=== PATIENT | male | born 1995 | race Caucasian/White ===

== ENCOUNTER 2020-07-14 22:48 | Inpatient (IN) | payer BC, OTHER ==
[~2020-07-14] VITALS: Ht 180.3 cm; Wt 60.6 kg
[2020-07-15 00:20] LABS: HEMOGLOBIN 15.2 g/dl (13.5-17.5); MEAN CORPUSCULAR HEMOGLOBIN 29.4 pg (27.0-33.0); PLATELET COUNT, AUTOMATED 231 10^3/uL (150-450); RED BLOOD COUNT 5.17 10^6/uL (4.30-6.10); WHITE BLOOD COUNT 10.1 10^3/uL (4.0-10.0)
[2020-07-15 00:30] LABS: ACETAMINOPHEN LEVEL < 2.0 UG/ML (10.0-30.0); ALBUMIN 4.5 GM/DL (3.2-5.2); ALT/SGPT 23 U/L (12-78); AMPHETAMINES LEVEL URINE NEGATIVE (NEGATIVE); BARBITURATES URINE NEGATIVE (NEGATIVE); BENZODIAZEPINES URINE NEGATIVE (NEGATIVE); BILIRUBIN,DIRECT 0.2 MG/DL (0.0-0.2); BILIRUBIN,TOTAL 0.5 MG/DL (0.2-1.0); BLOOD UREA NITROGEN 12 MG/DL (7-18); CALCIUM LEVEL 9.8 MG/DL (8.5-10.1); CANNABINOIDS URINE POSITIVE (NEGATIVE); CARBON DIOXIDE LEVEL 27 MEQ/L (21-32); CHLORIDE LEVEL 107 MEQ/L (98-107); COCAINE METABOLITE URINE NEGATIVE (NEGATIVE); CREATININE FOR GFR 1.29 MG/DL (0.70-1.30); ETHYL ALCOHOL (ETHANOL) < 0.003 % (0.000-0.010); GLOMERULAR FILTRATION RATE > 60.0 (>60); GLUCOSE, FASTING 114 MG/DL (70-100); METHADONE URINE NEGATIVE (NEGATIVE); OPIATES URINE NEGATIVE (NEGATIVE); PHENCYCLIDINE URINE NEGATIVE (NEGATIVE); POTASSIUM SERUM 4.3 MEQ/L (3.5-5.1); SALICYLATE LEVEL < 1.7 MG/DL (5.0-30.0); SODIUM LEVEL 141 MEQ/L (136-145); TOTAL PROTEIN 7.6 GM/DL (6.4-8.2)
[2020-07-15 03:00] LABS: RSV AMPLIFICATION NEGATIVE (NEGATIVE)
[2020-07-15] MEDS ORDERED: MOM 30ML SUSPENSION UDC PO PRN (03:30)
[2020-07-15] MEDS ORDERED: ACETAMINOPHEN TAB 650MG DOSE (2X325MG) PO PRN (03:30)
[2020-07-15] MEDS ORDERED: MAALOX 30 ML SUSP *UDC PO PRN (03:30)
[2020-07-15] MEDS ORDERED: traZODone 50 MG TAB PO PRN (03:30)
[2020-07-15 04:30] VITALS: BP 134/81
[2020-07-15] MEDS ORDERED: OLANZapine ORAL DISINTEGRATING TAB 5MG PO PRN (05:00)
[2020-07-15] MEDS: NICOTINE 21MG/24HR 1 EA TRANSDERMAL TD SCH (09:00)
[2020-07-15] MEDS: SERTRALINE HCL 25 MG TABLET PO SCH (09:00)
--- NOTE | 2020-07-15 13:56 | HPEPDOC ---
General Date of Admission Jul 14, 2020 at 22:49 Date of Service: Jul 15, 2020 Chief Complaint The patient is a 24-year-old male admitted with a reason for visit of Unspecified Mood D/O. History of Present Illness 24 year old male admitted for depression with suicidal thoughts and ideas to [facility]. He is being medically examined today. He complains of depressed mood, low enery and poor sleep. Home Medications No Active Prescriptions or Reported Meds Allergies Coded Allergies: No Known Allergies (Unverified , 07/14/20) Past Medical History Medical History Depression with 1 suicide attempt in 2017 by OD never reported. 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 Family History Significant Family History: Diabetes (maternal grandfather) Social History * Smoker: Denies Alcohol: Denies Drugs: denies, marijuana A-FIB/CHADSVASC A-FIB History Current/History of A-Fib/PAF?: No Review of Systems Constitutional: Denies: Chills, Fever, Night Sweats Eyes: Denies: Pain, Vision change ENT: Denies: Head Aches, Ear Pain, Dysphagia Skin: Denies: Rash, Lesions, Breakdown Pulmonary: Denies: Dyspnea, Cough Cardiovascular: Denies: Chest Pain, Palpitations, Orthopnea, Paroxysmal Noc. Dyspnea, Lt Headedness Gastrointestinal: Denies: Nausea, Vomiting, Abdominal Pain, Diarrhea Genitourinary: Denies: Dysuria, Frequency, Incontinence, Retention Hematologic: Denies: Bruising, Bleeding Excessively Musculoskeletal: Denies: Neck Pain, Back Pain, Joint Pain, Muscle Pain, Spasms Neurological: Denies: Weakness, Numbness, Change in speech, Confusion Psych: Reports: Mood Normal; Denies: Depression, Memory Issues Physical Examination General Exam: Positive: Alert, No Acute Distress Eye Exam: Positive: PERRLA, Conjunctiva & lids normal, EOMI; Negative: Sclera icteric ENT Exam: Positive: Atraumatic, Mucous membr. moist/pink, Pharynx Normal Neck Exam: Positive: Supple; Negative: JVD, thyromegaly Chest Exam: Positive: Clear to auscultation, Normal air movement Heart Exam: Positive: Rate Normal, Regular Rhythm, Normal S1, Normal S2; Negative: Murmurs, Rubs Telemetry: Positive: No significant arrhythmia Abdomen Exam: Positive: Normal bowel sounds, Soft; Negative: Tenderness, Hepatospenomegaly Extremity Exam: Positive: Normal pulses; Negative: Clubbing, Cyanosis, Edema Skin Exam: Positive: Nl turgor and temperature; Negative: Breakdown, Lesion Neuro Exam: Positive: Normal Gait, Normal Speech, Strength at 5/5 X4 ext Psych Exam: Positive: Memory Intact, Oriented x 3 Vital Signs Vital Signs Date Time Temp Pulse Resp B/P (MAP) Pulse Ox O2 Delivery O2 Flow Rate FiO2 07/15/20 04:30 98.3 83 16 134/81 (98) 99 Room Air Laboratory Data Labs 24H Laboratory Tests 2 07/14/20 23:42: Nucleated Red Blood Cells % (auto) 0.0, Anion Gap 7L, Glomerular Filtration Rate > 60.0, Calcium Level 9.8, Total Bilirubin 0.5, Direct Bilirubin 0.2, Aspartate Amino Transf (AST/SGOT) 21, Alanine Aminotransferase (ALT/SGPT) 23, Alkaline Phosphatase 63, Total Protein 7.6, Albumin 4.5, Albumin/Globulin Ratio 1.5, Thyroid Stimulating Hormone (TSH) 1.480, Salicylates Level < 1.7L, Urine Opiates Screen NEGATIVE, Urine Methadone Screen NEGATIVE, Acetaminophen Level < 2.0L, Urine Barbiturates Screen NEGATIVE, Urine Phencyclidine Screen NEGATIVE, Urine Amphetamines Screen NEGATIVE, Urine Benzodiazepines Screen NEGATIVE, Urine Cocaine Metabolite Screen NEGATIVE, Urine Cannabinoids Screen POSITIVEH, Ethyl Alcohol Level < 0.003 07/15/20 02:14: Coronavirus (COVID-19)(PCR) NEGATIVE, Influenza Type A (RT-PCR) NEGATIVE, Influenza Type B (RT-PCR) NEGATIVE, Respiratory Syncytial Virus (PCR) NEGATIVE CBC/BMP Laboratory Tests 07/14/20 23:42 Assessment/Plan 24 year old male admitted for depression with suicidal thoughts and ideas to [facility]. He is being medically examined today. Depression As per psychiatry No active medical issues at this time. Plan / VTE VTE Prophylaxis Ordered?: No (freely ambulatory ) ANDRA ALEXANDER MD Jul 15, 2020 13:38
[2020-07-15 17:55] VITALS: BP 136/66
--- NOTE | 2020-07-15 20:15 | MHHPEPDOC ---
General Date Of Admission: Jul 14, 2020 Legal Status: 9.39 Chief Complaint "I don't know who called the advanced quality engineer on me" History of Present Illness HISTORY OF THE PRESENT ILLNESS: Patient is a 24 -year-old , male, who reports depression and suicidal thoughts to shoot himself with a gun. He states that he doesn't know who called the police, but did not know who he was going to be brought to the ED. Patient reports that he has been depressed as he is going through a pending divorce, has chronic back and right leg pain from injuries when he was in the [employer]. And reports that he has ongoing financial stressors trying to pay for his family's living expenses while only allowing himself a min imal allowance. He wrote his sister a letter, he states in today's interview that it was not a suicide note, but according to the ED report, he summarized the letter that had not reached her and she called the Police. He states that this letter was about how he was feeling. He reports being physically and mentally drained. Patient has a long history of depression dating to his childhood due to his parents addiction issues. His mother planned her suicide and he report that his Grandmother was aware of his mother's plan. 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 He reports being very upset that he could not pickling grader his young baby at the time due to not being able to lift. He reports Physical Therapy, Pain Medications, Colon Cancer scare, Abdominal Repair annd subsequently was medically discharged from the [employer]. Reports that he became addicted to the pain medications and overdosed in 2017. He did not want to be discharged from the [employer]. Reports his current stressors are: Pain from his injuries Pending divorce Poor communication with his , she will not allow him to speak to his children at times. 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 Suicide Attempts: Overdose on pain medications 2017 Psychiatric Follow-up: None Psychiatric medications: None, does not want medications at this writing Past Medical History Medical Problems Chronic Back and Leg Pain Head Injury: No Seizures: No Hospitalizations: Yes Surgeries: Yes Family Medical/Psychiatric HX Psychiatric Disorders: Yes Addiction: Yes (mother - anything, "she sold everything we owned" Grandmother gave her the gun to shoot herself, Dad - history of Crack Use - poor relationsh ip) Suicide Attemps/Completions: Yes Addiction History nicotine (vape), other (Marijuana) Social History Childhood: Born in [place], lived with his mother. He had no siblings. States that his father kicked his mother when she was and she lost a baby due to that injury. Abuse/Trauma: Reports a long history of childhood trauma of neglect, parents with substance use disorder, mother committed suicide and left a hateful video to him, Grandmother had utilities turned off while he was living there, he had to have an electric cord borrowed from the neighbors to have air con ditioning/light. 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 Stepfather committed suicide. Current Living Situation: Lives with his , who is currently pursing a divorce Education: High School Grad, [employer], has Master's degree Employment: Works on [employer], his job takes him away from home 6 weeks at a time Social Support: Best friend Army friend Legal: none Marital: x 6 years, pending divorce Mental Status Examination General Appearance: well groomed, appears stated age, hospital scubs/clothing Build: thin Demeanor: withdrawn, guarded, other (sad, tearful) Eye Contact: avoidant Activity: slowed Behavior: cooperative, withdrawn Speech: clear, low in volume Mood: depressed, anxious Affect: constricted Thought Process: logical/linear Thought Content (Delusions): none reported Thought Content (Other): none reported Thought Content (Aggressive): none reported Perception (Hallucinations): none reported Perception (Other): none reported Cognition (Impairment of): none reported Cognition(Intelligence Est.): average Oriented: Awake, Alert, Oriented times three Insight: good Judgment: Good Psychosis: Denies (Major Depressive Disorder, Single Episode, Moderate) Diagnoses Major Depressive Disorder, Single Episode, Moderate Tobacco Use Disorder Cannabis Use Disorder Chronic Pain A-FIB/CHADSVASC A-FIB History Current/History of A-Fib/PAF?: No Current PO Anticoag Therapy: No Assessment Patient is a 24 year old , Employed, Domiciled Male reporting depression with suicidal ideation. He was brought to the ED by Police after he reported to his sister what he had written in a letter to her. He had also called his children, to tell them he loved them. He admits that he has been having suicidal ideation to shoot himself with a gun. He is currently having marital problems, he says his is him. He states she overspends their money, but he needs to continue working this job that requires him to do work that he says are physically demanding, increasing him pain. He has a chronic back and leg pain from an injury when he was in the . 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 Reports his only support is his friend from the [employer]. He also reports that he recently lost one of his Army buddies on Tuesday and lost 5 within the last year. Patient meets the criteria for Major Depressive Disorder but is not seeking help with medication management, states that he does not want pills because he was addicted prior and had an overdose to pain medications.Throughout his interview patient appeared severely depressed and was extremely tearful. Educated patient on SSRIs and anxiety medications. He continued to decline offer of medications. We will observe patient and discharge when he is stable. Initial Treatment Plan 1. Patient was admitted on a [9.39] status. 2. Complete history was obtained. 3. With patients permission, family will be contacted and database will be expanded. 4. Patients medication regimen will be reviewed and changed accordingly. 5. Patient will be provided with protected environment. 6. Patient will be treated with individual, group, and milieu therapies. 7. Patient will receive supportive psych-education. 8. Discharge planning will commence immediately. 9. Outpatient follow-up treatment will be strongly recommended. 10. The initial treatment plan will focus initially on: * Depression. * Risk for suicide. ESTIMATED LENGTH OF STAY: 3-5 DAYS. TIME SPENT COUNSELING AND COORDINATING INITIAL CARE: 60 minutes. Vital Signs Vital Signs Date Time Temp Pulse Resp B/P (MAP) Pulse Ox O2 Delivery O2 Flow Rate FiO2 07/15/20 04:30 98.3 83 16 134/81 (98) 99 Room Air Laboratory Data 24H Labs Laboratory Tests 2 07/14/20 23:42: Nucleated Red Blood Cells % (auto) 0.0, Anion Gap 7L, Glomerular Filtration Rate > 60.0, Calcium Level 9.8, Total Bilirubin 0.5, Direct Bilirubin 0.2, Aspartate Amino Transf (AST/SGOT) 21, Alanine Aminotransferase (ALT/SGPT) 23, Alkaline Phosphatase 63, Total Protein 7.6, Albumin 4.5, Albumin/Globulin Ratio 1.5, Thyroid Stimulating Hormone (TSH) 1.480, Salicylates Level < 1.7L, Urine Opiates Screen NEGATIVE, Urine Methadone Screen NEGATIVE, Acetaminophen Level < 2.0L, Urine Barbiturates Screen NEGATIVE, Urine Phencyclidine Screen NEGATIVE, Urine Amphetamines Screen NEGATIVE, Urine Benzodiazepines Screen NEGATIVE, Urine Cocai ne Metabolite Screen NEGATIVE, Urine Cannabinoids Screen POSITIVEH, Ethyl Alcohol Level < 0.003 07/15/20 02:14: Coronavirus (COVID-19)(PCR) NEGATIVE, Influenza Type A (RT-PCR) NEGATIVE, Influenza Type B (RT-PCR) NEGATIVE, Respiratory Syncytial Virus (PCR) NEGATIVE CBC/BMP Laboratory Tests 07/14/20 23:42 Medications No Active Prescriptions or Reported Meds Allergies Coded Allergies: No Known Allergies (Unverified , 07/14/20) KRISTOPHER ECHEVERRIA NP Jul 15, 2020 10:15
[2020-07-15] MEDS ORDERED: hydrOXYzine 50 MG TAB PO PRN (21:00)
[2020-07-16 06:43] VITALS: BP 123/73
[2020-07-16] MEDS: NICOTINE 21MG/24HR 1 EA TRANSDERMAL TD SCH (09:00)
[2020-07-16] MEDS: SERTRALINE HCL 25 MG TABLET PO SCH (09:13)
--- NOTE | 2020-07-16 14:46 | MHIPNPDOC ---
[facility] Progress Note Progress Note DATE OF SERVICE: 07/16/20 HISTORY OF THE PRESENT ILLNESS: Patient is a 24 -year-old , male, who reports depression and suicidal thoughts to shoot himself with a gun. He states that he doesn't know who called the police, but did not know who he was going to be brought to the ED. Patient reports that he has been depressed as he is going through a pending divorce, has chronic back and right leg pain from injuries when he was in the [employer]. And reports that he has ongoing financial stressors trying to pay for his family's living expenses while only allowing himself a minimal allowance. He wrote his sister a letter, he states in today's interview that it was not a suicide note, but according to the ED report, he summarized the letter that had not reached her and she called the Police. He states that this letter was about how he was feeling. He reports being physically and mentally drained. Patient has a long history of depression dating to his childhood due to his parents addiction issues. His mother planned her suicide and he report that h is Grandmother was aware of his mother's plan. 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 He reports Physical Therapy, Pain Medications, Colon Cancer scare, Abdominal Repair and subsequently was medically discharged from the [employer]. Reports that he became addicted to the pain medications and overdosed in 2017. He did not want to be discharged from the [employer]. Reports his current stressors are: Pain from his injuries Pending divorce Poor communication with his , she will not allow him to speak to his children at times. 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 CURRENT MEDICATIONS: See below. MENTAL STATUS EXAMINATION: Patient is a 24 -year-old , male, who reports depression and suicidal thoughts to shoot himself with a gun. General Appearance: well groomed, appears stated age, hospital scrubs/clothing Build: thin Demeanor: withdrawn, guarded, other (sad, tearful) Eye Contact: avoidant Activity: slowed Behavior: cooperative, withdrawn Speech: clear, low in volume Mood: depressed, anxious Affect: constricted Thought Process: logical/linear Thought Content (Delusions): none reported Thought Content (Other): none reported Thought Content (Aggressive): none reported Perception (Hallucinations): none reported Perception (Other): none reported Cognition (Impairment of): none reported Cognition(Intelligence Est.): average Oriented: Awake, Alert, Oriented times three Insight: good Judgment: Good Psychosis: Denies DIAGNOSES: (Major Depressive Disorder, Single Episode, Moderate) ASSESSMENT: Patient found in the day room, he is observed to be depressed flat affected, isolative and withdrawn. He reports that he is mild improvement but does not want to be addicted to medications. Reinforced with patient that he could be titrated off antidepressants at some point in the future. He is observed to be depressed, denies suicidal ideation but has poor eye contact when asked about. His mood is mildly improved today. MANAGEMENT PLAN: Patient agreeable to start Zoloft 25 mg and titrate to 50 mg tomorrow. He also agrees to Hydroxyzine TIME SPENT:25 minutes. Vital Signs Vital Signs Date Time Temp Pulse Resp B/P (MAP) Pulse Ox O2 Delivery O2 Flow Rate FiO2 07/16/20 07:50 Room Air 07/16/20 06:43 98.7 79 16 123/73 (90) 100 Current Medications Current Medications Medications (Trade) Dose Ordered Sig/Corrie Route PRN Reason Start Time Stop Time Status Last Admin Dose Admin Acetaminophen (Tylenol Tab) 650 mg Q6HP PRN PO HEADACHE or DISCOMFORT 07/15/20 03:30 Al Hydrox/Mg Hydrox/Simethicone (Mylanta) 30 ml Q4HP PRN PO HEARTBURN/INDIGESTION 07/15/20 03:30 Home Med (Med Rec Complete!) ASDIRECTED XX 07/15/20 04:15 07/15/20 04:07 DC Hydroxyzine HCl (Atarax) 50 mg Q6H PRN PO ANXIETY 07/15/20 21:00 Magnesium Hydroxide (Milk Of Magnesia) 30 ml DAILYPRN PRN PO CONSTIPATION 07/15/20 03:30 Nicotine (Nicoderm Cq 21mg) 1 patch DAILY TD 07/15/20 09:00 Olanzapine (ZyPREXA ZYDIS) 5 mg Q6HP PRN PO AGITATION 07/15/20 05:00 Sertraline HCl (Zoloft) 25 mg DAILY PO 07/15/20 09:00 07/16/20 10:04 DC 07/16/20 09:13 Sertraline HCl (Zoloft) 50 mg DAILY PO 07/17/20 09:00 Trazodone HCl (Desyrel) 50 mg QHSP PRN PO INSOMNIA 07/15/20 03:30 Allergies Coded Allergies: No Known Allergies (Unverified , 07/14/20) KRISTOPHER ECHEVERRIA NP Jul 16, 2020 14:46
[2020-07-16 18:15] VITALS: BP 136/76
[2020-07-17] MEDS: NICOTINE 21MG/24HR 1 EA TRANSDERMAL TD SCH (08:48)
[2020-07-17] MEDS ORDERED: SERTRALINE HCL 50 MG TAB PO SCH (09:00)
[2020-07-17] MEDS ORDERED: SERT50TA29 PO (10:44)
[2020-07-17] MEDS ORDERED: HYDR50TA70 PO (10:44)
[2020-07-17] MEDS ORDERED: TRAZ-252 PO (10:44)
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
== END 2020-07-17 16:03 | disposition home or self-care (01) | DRG 751 ==
LOC: M ED 22:48 → M ED INP 22:49 → M PSY 07-15 04:24
PROVIDERS: ADMIT Psychiatry & Neurology Psychiatry; ATTEND Psychiatry & Neurology Psychiatry
DX: F32.1 Major depressive disorder, single episode, moderate (principal); R45.851 Suicidal ideations; F43.10 Post-traumatic stress disorder, unspecified; Z63.5 Disruption of family by separation and divorce; Z59.8 Other problems related to housing and economic circumstances